=== PATIENT | male | born 1990 | race Caucasian/White ===

== ENCOUNTER 2017-12-04 18:59 | Emergency (ER) | payer OTHER ==
[~2017-12-04 18:59] MED LIST: AMOXIL500 MG PO; CITALOPRAM HYDR20 MG PO; LOMOTIL 0.025 M1 TAB PO; PROPECIA 1MG1 MG PO; ZOFRAN ODT4 MG PO
[2017-12-04 19:05] VITALS: BP 134/82
--- NOTE | 2017-12-04 19:21 | ED HAND/WRIST INJURY COMPLAINT ---
History of Present Illness General Chief Complaint: Laceration Procedure Stated Complaint: LAC TO LEFT HAND 3RD DIGIT Source: patient Exam Limitations: no limitations Vital Signs & Intake/Output Vital Signs & Intake/Output Vital Signs Date Time Temp Pulse Resp B/P B/P Pulse O2 O2 Flow FiO2 Mean Ox Delivery Rate 12/04 1905 97.0 65 17 134/82 96 Room Air ED Intake and Output 12/05 0000 12/04 1200 Intake Total Output Total Balance Patient 180 lb Weight Weight Reported by Patient Measurement Method Allergies Coded Allergies: NO KNOWN ALLERGIES (05/27/14) Reconcile Medications Amoxicillin (Amoxil) 500 MG CAP 1 TAB PO TID INFECTION Citalopram Hydrobromide (Citalopram HBr) 20 MG TABLET 20 MG PO DAILY DEPRESSION (Reported) DIPHENOXYLATE HCL/ATROPINE (Lomotil 2.5-0.025 MG Tablet) 2.5 MG-0.025 MG TABLET 1 TAB PO Q4 HRS NEEDED PRN diarrhea Finasteride (Propecia) 1 MG TABLET 1 TAB PO DAILY HAIR LOSS (Reported) Ondansetron (Zofran Odt) 4 MG TAB.RAPDIS 1 TAB PO Q6H PRN NAUSEA Triage Note: 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 STATES TETANUS UTD. Triage Nurses Notes Reviewed? yes Occurred: just prior to arrival Duration: hour(s):, constant Timing: single episode today HPI: 27-year-old male comes into the emergency room for further evaluation of laceration to left third finger. Patient reports that he was using a razor blade while he was working on his car and it slipped and cut tip of his finger. Tetanus shot is up-to-date. Sharp throbbing pain. Associated bleeding. Patient reports he cannot get the bleeding stopped so he comes in for further evaluation. (Peterson Sánchez) Past History Travel History Traveled to [place] past 21 day No Medical History Any Pertinent Medical History? see below for history Psychiatric: depression Surgical History Surgical History: non-contributory Psychosocial History What is your primary language Indonesian Tobacco Use: Never used Family History Hx Contributory? No (Peterson Sánchez) Review of Systems Review of Systems Constitutional: Reports: no symptoms. EENTM: Reports: no symptoms. Respiratory: Reports: no symptoms. Cardiovascular: Reports: no symptoms. GI: Reports: no symptoms. Genitourinary: Reports: no symptoms. Musculoskeletal: Reports: see HPI. Skin: Reports: no symptoms. Neurological/Psychological: Reports: no symptoms. Hematologic/Endocrine: Reports: see HPI. Immunologic/Allergic: Reports: no symptoms. All Other Systems: Reviewed and Negative (Peterson Sánchez) Physical Exam Physical Exam General Appearance: well developed/nourished, mild distress Head: atraumatic Eyes: Bilateral: normal appearance. Ears, Nose, Throat: normal ENT inspection, hearing grossly normal Neck: normal inspection Cardiovascular/Respiratory: no respiratory distress Back: normal inspection Hand Left: 3rd finger, AVULSION DISTAL PHALYNX/NAIL, BLEEDING Hand Right: normal inspection Neurologic/Tendon: normal sensation, normal motor functions, normal tendon functions, responds to pain, no evidence tendon injury, no pulse deficit Skin: intact, normal color, warm/dry (Peterson Sánchez) Progress Differential Diagnosis: contusion, fracture, sprain, TENDON LAC Plan of Care: 12/04/2017 8:09:07 PM Laceration was irrigated with tap water and peroxide. Kaltostat dressings with compression wrap was placed and bleeding controlled. Discharge and follow-up with PCP. (Peterson Sánchez) Departure Departure Disposition: HOME OR SELF CARE Condition: Stable Clinical Impression Primary Impression: Avulsion of skin of finger Additional Instructions: Keep dressing in place for 2 days. Take outer dressings off and then soak in warm water. Return if any concerns worsening symptoms. Please go over all results of today's visit with your primary care doctor. Contact your primary care doctor to let them know you were here in the emergency room. There may be nonspecific findings which may not be related to your visit today here in the emergency room but may require further evaluation and chronic monitoring by your primary care doctor. If you had a laceration today the chance of foreign body always remains. You should follow-up with your primary care doctor for recheck in 3-5 days for a wound check. If you had an x-ray done there is a chance that a fracture could have been missed on initial read and you should follow-up with your primary care doctor for repeat x-rays if symptoms persist. If your blood pressure was elevated here in the emergency room please have rechecked by [facility] primary care doctor within the next 48. If you were prescribed a narcotic here in the emergency room or any type of controlled substances you're not allowed to drive while taking this medication or operate any type of heavy machinery. Narcotics can make you feel lightheaded dizziness nausea and can cause constipation. You may need to shrimp picker a stool softener. Thank you for choosing [facility] emergency room. Please return to the emergency room immediately if you have any other concerns worsening of symptoms. Departure Forms: Customer Survey General Discharge Information (Peterson Sánchez) PA/HONEY EXTRACTOR Co-Sign Statement Statement: ED Attending supervision documentation- I saw and evaluated the patient. I have also reviewed all the pertinent lab results and diagnostic results. I agree with the findings and the plan of care as documented in the PA's/HONEY EXTRACTOR's documentation. x I have reviewed the ED Record and agree with the PA's/HONEY EXTRACTOR's documentation. [] Additions or exceptions (if any) to the PAs/HONEY EXTRACTOR's note and plan are summarized below: [] (Xiang DAY,[place])
== END 2017-12-04 19:45 ==
LOC: ERH 18:59
DX: S61.213A Laceration without foreign body of left middle finger without damage to nail, initial encounter (principal); W45.8XXA Other foreign body or object entering through skin, initial encounter; Y92.9 Unspecified place or not applicable; Y93.89 Activity, other specified

== ENCOUNTER 2017-12-05 01:36 | Emergency (ER) | payer OTHER ==
[2017-12-05 01:59] VITALS: BP 134/93
--- NOTE | 2017-12-05 02:07 | ED GENERAL ADULT ---
History of Present Illness General Chief Complaint: Laceration Procedure Stated Complaint: PT C/O LAC TO LT FINGER SEEN HERE FEW HRS AGO Source: patient Exam Limitations: no limitations Vital Signs & Intake/Output Vital Signs & Intake/Output Vital Signs Date Time Temp Pulse Resp B/P B/P Pulse O2 O2 Flow FiO2 Mean Ox Delivery Rate 12/05 0159 97.6 79 20 134/93 97 Room Air Allergies Coded Allergies: NO KNOWN ALLERGIES (05/27/14) Reconcile Medications Amoxicillin (Amoxil) 500 MG CAP 1 TAB PO TID INFECTION Citalopram Hydrobromide (Citalopram HBr) 20 MG TABLET 20 MG PO DAILY DEPRESSION (Reported) DIPHENOXYLATE HCL/ATROPINE (Lomotil 2.5-0.025 MG Tablet) 2.5 MG-0.025 MG TABLET 1 TAB PO Q4 HRS NEEDED PRN diarrhea Finasteride (Propecia) 1 MG TABLET 1 TAB PO DAILY HAIR LOSS (Reported) Ondansetron (Zofran Odt) 4 MG TAB.RAPDIS 1 TAB PO Q6H PRN NAUSEA Triage Note: TRIAGE: PATIENT SEEN HERE "MAYBE 2 HOURS AGO," (SAW DEION GOOD) S/P LAC TO L FINGER, DRESSING DRY AND INTACT. REPORTING "STILL HURTS," CALLED HERE TWICE SINCE HIS DISCHARGE AND WAS ADVISED BY DEION GOOD TO TAKE IBUPROFEN 800MG, TOOK W/ NO RELIEF. "THE PAIN IS TOO SEVERE I COULD CRY," PER PATIENT. ALSO REPORTS ELEVATION AND ICE NO HELP RECCOMENDED BY NURSING STAFF AND PA. Triage Nurses Notes Reviewed? yes HPI: Patient seen earlier in the night for nail avulsion. Was discharged with a pressure dressing they continue to cause pain to the patient return for further evaluation. Past History Travel History Traveled to [place] past 21 day No Medical History Any Pertinent Medical History? see below for history Psychiatric: depression Surgical History Surgical History: non-contributory Psychosocial History What is your primary language Welsh Tobacco Use: Never used Family History Hx Contributory? No Review of Systems Review of Systems Constitutional: Reports: no symptoms. EENTM: Reports: no symptoms. Respiratory: Reports: no symptoms. Cardiovascular: Reports: no symptoms. GI: Reports: no symptoms. Genitourinary: Reports: no symptoms. Musculoskeletal: Reports: no symptoms. Skin: Reports: no symptoms. Neurological/Psychological: Reports: no symptoms. Hematologic/Endocrine: Reports: no symptoms. Immunologic/Allergic: Reports: no symptoms. All Other Systems: Reviewed and Negative Physical Exam Physical Exam General Appearance: no apparent distress Comments: Gen.: Well-nourished, well-developed, no acute respiratory distress. Head: Normocephalic, atraumatic, nontender. Eyes: Normal inspection bilaterally, toney, EOMI Ears: Normal inspection bilaterally Nose: Normal inspection Throat/mouth : Moist mucosa Neck: Supple, full range of motion, no goiter, nontender Heart: Regular rate and rhythm, no murmurs rubs or gallops Lungs: Clear to auscultation bilaterally with normal air entry Chest: Nontender Back: Normal range of motion, nontender Abdomen: Soft, nontender, nondistended, normal bowel sounds Pelvis: Stable and nontender Extremities: Normal range of motion grossly, no tenderness, no cyanosis clubbing or edema Neurologic: Cranial nerves grossly intact, speech is clear Skin: Pressure dressing applied to the distal phalanx of left third phalange. Dressing was removed quarter of the nail was avulsed without disruption of nail bed. Psychiatric: Calm, cooperative, no apparent delusions or hallucinations Core Measures ACS in differential dx? No CVA/TIA Diagnosis: No Sepsis Present: No Sepsis Focused Exam Completed? No Progress Differential Diagnoses I considered the following diagnoses in my evaluation of the patient: Laceration Plan of Care: Current Medications Sig/Alecia Start time Last Medication Dose Stop Time Status Admin Lidocaine 20 ML ONCE ONE 12/05 144 UNVr 12/05 (Lidocaine 1%) 12/05 0146 0158 Initial ED EKG: none Comments: Pressure dressing was causing discomfort. Digital block performed. Pressure dressing removed, wound explored, lubricant applied and rewrapped. Instructions to wet the wound seep. Keep the dressing on for 48 hours. Change as needed. Return precautions given. Departure Departure Disposition: HOME OR SELF CARE Condition: Stable Clinical Impression Primary Impression: Skin avulsion Referrals: Patient Has No Primary Care Dr (PCP/Family) Additional Instructions: Keep bandage in place for 48 hours change as needed. Departure Forms: Customer Survey General Discharge Information Comments Please note that there might be incidental findings in your evaluation that are unrelated to the current emergency department visit. Please notify your primary care doctor about this emergency department visit in order to obtain and review all of the testing performed so that these incidental findings can be monitored as needed. If you had an x-ray performed, please understand that some fractures may not be seen on the initial set of x-rays. If your symptoms persist you might need a repeat set of x-rays to check for such a fracture. If you had a laceration evaluated, please understand that foreign bodies such as glass or wood may not be visible to the naked eye or on plain x-rays. If the wound becomes red, swollen, increasingly more painful or if there is any drainage from the wound, please have it reevaluated by a physician for the possibility of a retained foreign body. If you're unable to follow up as outlined in the discharge instructions please return to the emergency department. Critical Care Note Critical Care Note Critical Care Time: non-applicable
== END 2017-12-05 02:21 ==
LOC: ERH 01:36
DX: S61.303D Unspecified open wound of left middle finger with damage to nail, subsequent encounter (principal)
CPT/HCPCS: J2001

== ENCOUNTER 2017-12-09 15:37 | Emergency (ER) | payer OTHER ==
--- NOTE | 2017-12-09 17:00 | RADIOLOGY REPORT ---
EXAMINATION: XR CHEST CLINICAL INFORMATION: Question foreign body. Chicken stuck in throat. COMPARISON: None TECHNIQUE: 2 views of the chest were obtained. FINDINGS: No radiopaque foreign body is identified. The lungs are clear. No pleural effusions are seen. The cardiomediastinal silhouette is normal. No osseous abnormality is identified. IMPRESSION: Clear lungs. No acute process. No radiopaque foreign body visualized.
--- NOTE | 2017-12-09 17:01 | RADIOLOGY REPORT ---
EXAMINATION: XR SOFT TISSUE NECK CLINICAL INDICATION: Foreign body. Chicken stuck in throat. COMPARISON: None TECHNIQUE: 2 views of the soft tissue neck were obtained. FINDINGS: The airways maintained. No radiopaque foreign body is identified. The prevertebral soft tissues are normal. No osseous abnormality is seen. The lung apices are clear. IMPRESSION: Normal plain film evaluation of the soft tissues of the neck.
--- NOTE | 2017-12-09 17:49 | ED GENERAL ADULT ---
History of Present Illness General Chief Complaint: General Adult Stated Complaint: "OBSTRUCTION IN AIRWAY, PIECE OF CHICKEN" Source: patient Exam Limitations: no limitations Vital Signs & Intake/Output Vital Signs & Intake/Output Vital Signs Date Time Temp Pulse Resp B/P B/P Pulse O2 O2 Flow FiO2 Mean Ox Delivery Rate 12/09 1748 99 Room Air 12/09 1543 98.7 67 18 153/79 98 Room Air Allergies Coded Allergies: NO KNOWN ALLERGIES (05/27/14) Reconcile Medications Amoxicillin (Amoxil) 500 MG CAP 1 TAB PO TID INFECTION Citalopram Hydrobromide (Citalopram HBr) 20 MG TABLET 20 MG PO DAILY DEPRESSION (Reported) DIPHENOXYLATE HCL/ATROPINE (Lomotil 2.5-0.025 MG Tablet) 2.5 MG-0.025 MG TABLET 1 TAB PO Q4 HRS NEEDED PRN diarrhea Finasteride (Propecia) 1 MG TABLET 1 TAB PO DAILY HAIR LOSS (Reported) Ondansetron (Zofran Odt) 4 MG TAB.RAPDIS 1 TAB PO Q6H PRN NAUSEA Triage Note: PT TO ED WITH C/O SENSATION OF CHICKEN STUCK IN HIS ESOPHAGUS. DENIES HX OF SAME. AIRWAY INTACT. 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 STATES TRIED TO VOMIT IT UP BUT WAS UNABLE. Triage Nurses Notes Reviewed? yes Onset: Abrupt Duration: minute(s): Timing: constant HPI: 27-year-old male with a history of depression presenting with esophageal foreign body just prior to arrival. Patient reports that he was eating chicken meat when it got caught in his throat. He has no history of dysphasia. States that he was eating just chicken meat, there was no chicken bone. On arrival to the emergency department he is speaking in full sentences, normal vital signs, no signs of respiratory distress. He states that he tried to induce vomiting by putting his fingers down his throat in an attempt to get the chicken out, but was unsuccessful. Denies chest pain or shortness of breath. Past History Travel History Traveled to [place] past 21 day No Medical History Any Pertinent Medical History? 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 No Review of Systems Review of Systems Constitutional: Reports: no symptoms. EENTM: Reports: no symptoms. Respiratory: Reports: no symptoms. Cardiovascular: Reports: no symptoms. GI: Reports: see HPI. Genitourinary: Reports: no symptoms. Musculoskeletal: Reports: no symptoms. Skin: Reports: no symptoms. Neurological/Psychological: Reports: no symptoms. Hematologic/Endocrine: Reports: no symptoms. Immunologic/Allergic: Reports: no symptoms. All Other Systems: Reviewed and Negative Physical Exam Physical Exam General Appearance: well developed/nourished, no apparent distress, alert, awake Comments: Gen.: Well-nourished, well-developed, no acute distress. Head: Normocephalic, atraumatic. Eyes: Normal inspection bilaterally Ears: Normal inspection bilaterally Nose: Normal inspection Throat: Normal inspection Neck: Normal inspection, no palpable foreign body Lungs: clear to auscultation bilaterally, normnal breath sounds Heart: regular rate and rhythm Abdomen: soft and non-tender Extremities: Normal inspection Neurologic: alert and oriented x3, steady gait Skin: warm and dry Psychiatric: Normal mood and affect, no apparent delusions or hallucinations, behavior appropriate Core Measures ACS in differential dx? No CVA/TIA Diagnosis: No Sepsis Present: No Sepsis Focused Exam Completed? No Progress Differential Diagnoses I considered the following diagnoses in my evaluation of the patient: [ Esophageal foreign body, low concern for esophageal obstruction versus perforation] Plan of Care: X-rays were unremarkable. After the x-rays patient states that he feels as though the food has finally dissolved and passed. He is tolerating water and crackers without difficulty. He has likely spontaneously passed the food. Cleared for discharge. Given strict return precautions. Initial ED EKG: none Departure Departure Disposition: HOME OR SELF CARE Condition: Stable Clinical Impression Primary Impression: Foreign body of esophagus Referrals: Patient Has No Primary Care Dr (PCP/Family) Additional Instructions: Return to the emergency department for any new or worsening symptoms. Departure Forms: Customer Survey General Discharge Information Critical Care Note Critical Care Note Critical Care Time: non-applicable
[2017-12-09 17:50] VITALS: BP 142/74
== END 2017-12-09 17:53 ==
LOC: ERH 15:37
DX: T18.108A Unspecified foreign body in esophagus causing other injury, initial encounter (principal); F32.9 Major depressive disorder, single episode, unspecified
CPT/HCPCS: 70360; 71046